=== PATIENT | male | born 2000 | race Caucasian/White ===

== ENCOUNTER 2019-09-13 22:26 | Emergency (ER) | payer OTHER, SELFPAY ==
[2019-09-13 22:27] VITALS: BP 139/92; PULSE 80; RESP 16; TEMP 36.8; O2SAT 98; BMI 28.7
--- NOTE | 2019-09-13 22:42 | ED.DCSUM_ITS ---
- ER Visit Summary Date of Service: 09/13/19 Chief Complaint: Accidental needlestick History of Present Illness: The patient is a 19 M who sustained an accidental needlestick. 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 An inmate was using his insulin needle. He disposed of it in a container and while shutting the container the patient was poked on the dorsal right index finger between the DIP and PIP joint. He states it did not break skin and there was no bleeding involved. The patient admitted on an information sheet that he has hepatitis A but denied HIV or hepatitis C. Patient is denying any current symptoms. Physical Examination: Vital signs reviewed. Right hand exam reveals an area that appears to be a needlestick on the dorsal right index finger between the PIP and DIP joint. There is no bleeding. No erythema. No tenderness. He has full range of motion. Capillary refill normal Test Results: Needlestick protocol initiated. Emergency Department Course and Treatment: With shared decision-making, the patient declined any postexposure prophylaxis for HIV or hepatitis. Patient will need [facility] follow[facility] with [facility] for further testing. Treatment Plan: [] Disposition: Discharge Impression: Needlestick, right index finger, accidental This note was generated with [employer] software. It may contain incorrect words, spelling, and punctuation that were not noted in review of the chart prior to signing ED Disposition - Plan for ED Patient: Disposition: Home or Assisted Living Instructions: ED Body Fluid Exposure Not Healthcare Worker Referrals: Brian Glass MD [STAFF PHYSICIAN] -
[2019-09-14 09:53] LABS: HIV - WCH Non-Reactive (Nonreactive); Hepatitis B Surface Antibody Reactive; Hepatitis B Surface Antigen Non-Reactive (Nonreactive); Hepatitis C Antibody Non-Reactive (Nonreactive)
[2019-09-15 08:08] LABS: Hepatitis A AB, Total Negative (Negative)
[2019-09-15 21:15] LABS: Hepatitis A IgM Antibody Negative (Negative)
== END 2019-09-13 23:48 | disposition home or self-care (01) ==
PROVIDERS: Emergency Provider Emergency Medicine
DX: S61.230A Puncture wound without foreign body of right index finger without damage to nail, initial encounter (principal); W46.1XXA Contact with contaminated hypodermic needle, initial encounter; Y93.89 Activity, other specified; Y92.148 Other place in prison as the place of occurrence of the external cause; Y99.0 Civilian activity done for income or pay
CPT/HCPCS: 36415; 86703; 86706; 86708; 86709; 86803; 87340; 99282